=== PATIENT | male | born 1965 | race African-American/Black ===

== ENCOUNTER 2021-06-15 20:44 | Emergency (ER) | payer OTHER ==
[~2021-06-15] VITALS: Ht 188 cm; Wt 96.0 kg
[2021-06-15] MEDS ORDERED: HYDROCODONE/ACETAMINOPHEN 10/325MG TABLET PO ONE (21:15)
[2021-06-15] MEDS ORDERED: MORPHINE SULFATE 4 MG/ML CPJ (NOT FOR IM USE) IV ONE (21:15)
[2021-06-15] MEDS ORDERED: LIDOCAINE HCL 1% 20ML VIAL (Pyxis) INJ INFIL ONE (22:00)
[2021-06-15] MEDS ORDERED: LIDOCAINE HCL 1% 10 MG/ML 10ML VIAL INJ NR (22:11)
[2021-06-16] MEDS ORDERED: IBUP-2029 MT (00:25)
[2021-06-16] MEDS ORDERED: HYDR-4001 MT (00:25)
[2021-06-16] MEDS ORDERED: HYDROCODONE/ACETAMINOPHEN 5/325MG TABLET PO ONE (00:30)
[2021-06-16 01:30] VITALS: BP 119/69
== END 2021-06-16 00:51 | disposition home or self-care (01) ==
LOC: ER 20:44
DX: S62.392A Other fracture of third metacarpal bone, right hand, initial encounter for closed fracture (principal); S62.394A Other fracture of fourth metacarpal bone, right hand, initial encounter for closed fracture; S62.341A Nondisplaced fracture of base of second metacarpal bone, left hand, initial encounter for closed fracture; S62.343A Nondisplaced fracture of base of third metacarpal bone, left hand, initial encounter for closed fracture; I10 Essential (primary) hypertension; F14.10 Cocaine abuse, uncomplicated; W10.8XXA Fall (on) (from) other stairs and steps, initial encounter; Y93.89 Activity, other specified; Y92.488 Other paved roadways as the place of occurrence of the external cause
CPT/HCPCS: 26605; 73100; 73120; 96374; 99284; J2270; J3490

== ENCOUNTER 2021-06-28 15:03 | Emergency (ER) | payer OTHER ==
[~2021-06-28] VITALS: Ht 198.1 cm; Wt 87.0 kg
[~2021-06-28 15:03] MED LIST: HYDR-4001 MT; IBUP-2029 MT
[2021-06-28] MEDS ORDERED: HYDROCODONE/ACETAMINOPHEN 5/325MG TABLET PO ONE (15:30)
[2021-06-28 15:31] VITALS: BP 172/94
[2021-06-28] MEDS ORDERED: HYDR-4001 MT (18:01)
[2021-06-28] MEDS ORDERED: IBUP-2029 MT (18:01)
== END 2021-06-28 18:10 | disposition home or self-care (01) ==
LOC: ER 15:03
DX: S62.321A Displaced fracture of shaft of second metacarpal bone, left hand, initial encounter for closed fracture (principal); S62.313A Displaced fracture of base of third metacarpal bone, left hand, initial encounter for closed fracture; S62.392A Other fracture of third metacarpal bone, right hand, initial encounter for closed fracture; S62.394A Other fracture of fourth metacarpal bone, right hand, initial encounter for closed fracture; L84 Corns and callosities; W01.0XXA Fall on same level from slipping, tripping and stumbling without subsequent striking against object, initial encounter; Y93.89 Activity, other specified; Y92.018 Other place in single-family (private) house as the place of occurrence of the external cause
CPT/HCPCS: 73130; 99283

== ENCOUNTER 2022-08-01 05:24 | Emergency (ER) | payer MEDICAID, OTHER ==
[~2022-08-01] VITALS: Ht 185.4 cm; Wt 87.0 kg
[2022-08-01 05:29] VITALS: BP 168/122
== END 2022-08-01 05:45 | disposition home or self-care (01) ==
LOC: ER 05:24
DX: R04.0 Epistaxis (principal); F10.229 Alcohol dependence with intoxication, unspecified; I10 Essential (primary) hypertension; F14.10 Cocaine abuse, uncomplicated; Z79.899 Other long term (current) drug therapy
CPT/HCPCS: 99283